=== PATIENT | male | born 1985 | race Caucasian/White ===

== ENCOUNTER 2019-03-10 10:10 | Emergency (ER) | payer OTHER ==
[2019-03-10 10:21] VITALS: BP 161/95
--- NOTE | 2019-03-10 11:28 | ED Physician Documentation ---
PD HPI UPPER EXT INJURY - Stated complaint Stated Complaint: HAND LAC - Chief complaint Chief Complaint: Laceration - History obtained from History obtained from: Patient - History of Present Illness Location: Left, Finger (index) Where injury occurred: Home Timing - onset: How many hours ago (1) - Additonal information Additional information: The patient is a 33-year-old [id number] male who presents with laceration to the base of his left index finger. He was splitting kindling at home when the ax impacted his left index finger. He denies any other injuries. Vaccinations are up-to-date. Review of Systems Skin: reports: Laceration (s) Neurologic: denies: Focal weakness, Numbness PD PAST MEDICAL HISTORY - Past Medical History Neuro: Other (Traumatic brain injury.) - Allergies Allergies/Adverse Reactions: Allergies Allergy/AdvReac Type Severity Reaction Status Date / Time morphine Allergy Respiratory Verified 03/10/19 10:16 - Social History Does the pt smoke?: Yes Smoking Status: Current every day smoker Does the pt have substance abuse?: No PD ED PE NORMAL - Vitals Vital signs reviewed: Yes (Initially hypertensive.) - General General: Alert and oriented X 3, Well developed/nourished - HEENT HEENT: Atraumatic - Respiratory Respiratory: No respiratory distress - Derm Derm: No rash - Extremities Extremities: Other (There is a 1 cm laceration at the base of the left index finger over the MCP joint. Exploration of the wound reveals a small betina in the dorsal surface of the extensor tendon, involving less than one third of the tendon. He has full flexion and extension of the DIP, PIP, and MCP joints, against resistance. Distal neurovascular is intact.) - Neuro Neuro: Alert and oriented X 3, No motor deficit, No sensory deficit Results - Vitals Vitals: Vital Signs - 24 hr 03/10/19 10:12 Temperature 37.0 C Heart Rate 83 Respiratory 14 Rate Blood Pressure 161/95 H O2 Saturation 100 Oxygen O2 Source Room air Procedures - Laceration (location) Left index finger Length in cm: 1 Wound type: Linear Neurovascular status: Sensory intact, Motor intact, Vascular intact Tendon involvement: Tendon Injury (Neck in the dorsal aspect of the extensor tendon, involving less than one third of the tendon.) Anesthesia: Lidocaine 1% with epi Wound Preparation: Hibiclens, Irrigated copiously NS, Wound explored, To the base. No: FB identified Skin layer closure: Nylon, Interrupted, Size #-0 - enter number (5), Sutures - enter # (2) Other: Patient tolerated well, No complications, Neurovascular intact, Dressing applied, Tetanus UTD Complexity: Simple PD MEDICAL DECISION MAKING - ED course Complexity details: re-evaluated patient, considered differential, d/w patient ED course: The patient's presentation is significant for laceration at the extensor base of the left index finger. There is superficial involvement of the extensor tendon. After the wound was explored and thoroughly irrigated, skin closure was obtained using 5-0 nylon simple sutures. Gauze dressing was applied, and an AlumaFoam finger splint was applied. I discussed with him appropriate wound care, timing for suture removal, as well as potentially worrisome signs or symptoms that should prompt reevaluation in the emergency department. Departure - Departure Disposition: 01 Home, Self Care Clinical Impression: Finger laceration involving tendon Qualifiers: Encounter type: initial encounter Qualified Code(s): S61.219A - Laceration without foreign body of unspecified finger without damage to nail, initial encounter Condition: Stable Instructions: ED Laceration Hand Follow-Up: Shavon Mcdowell MD [Provider Admit Priv/Credential] - Comments: Keep the wound clean, and apply antibiotic ointment daily. Use the AlumaFoam splint for the next 2 weeks. You can use Tylenol or ibuprofen if needed for discomfort. Follow-up for suture removal in about 10 days. Return to the emergency department if you develop any sign of infection, or otherwise worsening symptoms. Forms: Activity restrictions
== END 2019-03-10 11:52 | disposition home or self-care (01) ==
LOC: ED 10:10
DX: S66.321A Laceration of extensor muscle, fascia and tendon of left index finger at wrist and hand level, initial encounter (principal); S61.211A Laceration without foreign body of left index finger without damage to nail, initial encounter; W27.0XXA Contact with workbench tool, initial encounter; Y93.89 Activity, other specified; Y92.009 Unspecified place in unspecified non-institutional (private) residence as the place of occurrence of the external cause; F17.200 Nicotine dependence, unspecified, uncomplicated
CPT/HCPCS: 12001; 99282; 99283

== ENCOUNTER 2020-10-12 14:22 | Emergency (ER) | payer OTHER ==
[2020-10-12] MEDS ORDERED: SODIUM CHLORIDE 0.9% 1,000 ML IV STA (14:37)
--- NOTE | 2020-10-12 14:40 | ED Physician Documentation ---
History of Present Illness - Stated complaint Stated Complaint: HIGH BP, COGNITIVE IMPAIRMENT, SWEATING, HEART ISS - History obtained from History obtained from: Patient - Additonal information Additional information: He has had on and off diarrhea for quite some time. Starting 5 days ago he developed watery stools, no blood. Happen 6-8 times a day. About the same time he feels mildly confused, he feels like he does okay with yes or no questions but has difficulty with more complicated issues. Last night he felt like he had a "cardiac issue" where he had to chew some aspirin. There is no pain he just felt like his heart was vibrating for a couple of hours. That is gone now. He does have wheezing and shortness of breath but is a heavy smoker. He wonders if he might have untreated Giardia. He is never been tested for that. No history of colonoscopy. Review of Systems Ten Systems: 10 systems reviewed and negative Constitutional: denies: Fever, Chills, Myalgias, Weight Loss Nose: denies: Rhinorrhea / runny nose, Congestion Throat: denies: Sore throat Cardiac: reports: Palpitations. denies: Chest pain / pressure Respiratory: reports: Dyspnea, Cough PD PAST MEDICAL HISTORY - Past Medical History Neuro: Other (Traumatic brain injury.) - Present Medications Home Medications: Ambulatory Orders Medication Instructions Recorded Confirmed Albuterol Sulf [Ventolin Hfa 1 - 2 puffs INH Q4HR PRN #1 inhaler 10/12/20 Inhaler] Tinidazole [Tindamax] 4 tab PO ONCE #4 tablet 10/12/20 - Allergies Allergies/Adverse Reactions: Allergies Allergy/AdvReac Type Severity Reaction Status Date / Time morphine Allergy Respiratory Verified 10/12/20 14:33 - Social History Does the pt smoke?: Yes Smoking Status: Current every day smoker Does the pt have substance abuse?: No PD ED PE NORMAL - Vitals Vital signs reviewed: Yes - General General: Alert and oriented X 3, No acute distress - HEENT HEENT: PERRL, EOMI - Neck Neck: Supple, no meningeal sign, No bony TTP - Cardiac Cardiac: RRR, No murmur - Respiratory Respiratory: No respiratory distress, Other (Wheezy throughout without focal findings) - Abdomen Abdomen: Non tender - Back Back: No CVA TTP, No spinal TTP - Derm Derm: Normal color, Warm and dry - Extremities Extremities: No edema, No calf tenderness / cord - Neuro Neuro: Alert and oriented X 3, No motor deficit, No sensory deficit, Normal speech Eye Opening: Spontaneous Motor: Obeys Commands Verbal: Oriented GCS Score: 15 Results - Vitals Vitals: Vital Signs - 24 hr 10/12/20 10/12/20 10/12/20 14:30 15:08 15:45 Temperature 36.5 C Heart Rate 95 77 84 Respiratory 18 16 20 Rate Blood Pressure 162/110 H 140/102 H O2 Saturation 98 99 Oxygen O2 Source Room air - EKG (time done) 1438 Rate: Rate (enter#) (81) Rhythm: NSR [place]: Normal Intervals: Normal SD QRS: Normal Ischemia: ST elevation c/w repol. No: ST elevation c/w ischemia, ST depression Computer interpretation: Agree with computer - Labs Labs: Laboratory Tests 10/12/20 10/12/20 10/12/20 15:00 15:00 15:00 WBC 9.2 RBC 5.27 Hgb 15.8 Hct 44.5 MCV 84.4 MCH 30.0 MCHC 35.5 RDW 12.0 Plt Count 223 MPV 10.0 Neut # (Auto) 5.4 Lymph # (Auto) 2.5 [place] # (Auto) 0.7 Eos # (Auto) 0.6 Baso # (Auto) 0.0 Absolute Nucleated RBC 0.00 Nucleated RBC % 0.0 Sodium 141 Potassium 3.9 Chloride 107 Carbon Dioxide 24 Anion Gap 10.0 BUN 17 Creatinine 1.1 Estimated GFR (MDRD) 76 L Glucose 102 H Calcium 9.5 Magnesium 2.0 Total Bilirubin 0.7 AST 27 ALT 31 Alkaline Phosphatase 68 Troponin I High Sens < 2.3 L Total Protein 7.7 Albumin 4.6 Globulin 3.1 Albumin/Globulin Ratio 1.5 Lipase 38 - Rads (name of study) 1v chest Radiology: EMP read contemporaneously (hyperexpansion, NAD) PD MEDICAL DECISION MAKING - ED course ED course: 35-year-old gentleman presents with varied complaints of on and off diarrhea for quite some time now with feeling like he has cognitive issues and but his examination is unremarkable. He is wheezing which improved with an albuterol inhaler. He was counseled at length to quit smoking. He was unable to produce a stool sample here for stool testing but already has an outpatient order from his primary care physician for this. Is pretty convinced he has Giardia and since he is having trouble turning in a stool sample for same would like to be treated presumptively, since tinidazole is a fairly benign medication its not unreasonable. Departure - Departure Disposition: 01 Home, Self Care Clinical Impression: Wheezing Diarrhea Qualifiers: Diarrhea type: presumed infectious Qualified Code(s): R19.7 - Diarrhea, unspecified Condition: Stable Record reviewed to determine appropriate education?: Yes Instructions: ED Dehydration Prescriptions: Albuterol Sulf [Ventolin Hfa Inhaler] 1 - 2 puffs INH Q4HR PRN #1 inhaler PRN Reason: Shortness Of Air/Wheezing Tinidazole [Tindamax] 4 tab PO ONCE #4 tablet Comments: Return a stool sample to the lab as ordered by your PCP. Return if worsening. You have a Covid test pending. You need to self quarantine until the result is done and negative. Do not leave your house. Do not get near anybody. The results should be done in 48 to 72 hours. We will call with a positive result, the fastest way to get a negative result for confirmation though is to go to the hospital website at [email or web address], click on the my [facility] tab and sign up for the patient portal. If any friends or family get sick and would like to have a Covid test done, but do not have signs or symptoms that would necessitate being hospitalized, we encourage testing through our coronavirus swabbing station, call [phone] to schedule an appointment.
--- NOTE | 2020-10-12 15:00 | XRAY Report ---
PROCEDURE: Chest 1 View X-Ray INDICATIONS: wheezing TECHNIQUE: One view of the chest was acquired. COMPARISON: None FINDINGS: Surgical changes and devices: None. Lungs and pleura: No pleural effusions or pneumothorax. Lungs are clear, hyperexpanded. Mediastinum: Mediastinal contours appear normal. Heart size is normal. Bones and chest wall: No suspicious bony lesions. Overlying soft tissues appear unremarkable. IMPRESSION: Hyperexpanded lungs are seen, without an acute cardiopulmonary abnormality seen. Reviewed by: Romel Rosa MD on 10/12/2020 1:[address] [facility] Approved by: Romel Rosa MD on 10/12/2020 1:[address] [facility] Station ID: [id number]
[2020-10-12 15:07] LABS: BASOPHILS % (AUTO) 0.4 %; EOSINOPHILS # (AUTO) 0.6 10^3/uL (0.0-0.7); HGB - HEMOGLOBIN 15.8 g/dL (14.0-18.0); LYMPHOCYTES # (AUTO) 2.5 10^3/uL (1.5-3.5); LYMPHOCYTES % (AUTO) 26.8 %; MEAN CORPUSCULAR HGB CONC 35.5 g/dL (32.0-36.0); MEAN CORPUSCULAR VOLUME 84.4 fL (80.0-94.0); MONOCYTES # (AUTO) 0.7 10^3/uL (0.0-1.0); MONOCYTES % (AUTO) 7.1 %; NEUTROPHILS # (AUTO) 5.4 10^3/uL (1.5-6.6); NEUTROPHILS % (AUTO) 58.5 %; PLT - PLATELET COUNT 223 10^3/uL (130-450); RED BLOOD COUNT 5.27 10^6/uL (4.70-6.10); WHITE BLOOD COUNT 9.2 x10^3/uL (4.8-10.8)
[2020-10-12] MEDS ORDERED: ALBUTEROL 1 PUFF INH STA (15:08)
[2020-10-12 15:22] LABS: ALBUMIN 4.6 g/dL (3.2-5.5); ALBUMIN/GLOBULIN RATIO 1.5 (1.0-2.2); BILIRUBIN,TOTAL 0.7 mg/dL (0.2-1.0); CALCIUM 9.5 mg/dL (8.5-10.3); CREATININE 1.1 mg/dL (0.6-1.2); TOTAL PROTEIN 7.7 g/dL (6.7-8.2)
[2020-10-12 16:31] VITALS: BP 149/75
== END 2020-10-12 16:33 | disposition home or self-care (01) ==
LOC: ED 14:22
DX: R06.2 Wheezing (principal); R19.7 Diarrhea, unspecified; R00.2 Palpitations; Z20.828 Contact with and (suspected) exposure to other viral communicable diseases; F17.200 Nicotine dependence, unspecified, uncomplicated
CPT/HCPCS: 36415; 80053; 83690; 83735; 84484; 85025; 93005; 94640; 94664; 96360; 99284

== ENCOUNTER 2022-03-26 10:00 | Outpatient (CLI) | payer OTHER ==
--- NOTE | 2022-03-28 10:32 | MRI Report ---
PROCEDURE: Knee RT W/O INDICATIONS: RIGHT KNEE PAIN/ SWELLING TECHNIQUE: Noncontrast sagittal PD fast spin echo and T2 fast spin echo with fat saturation, sagittal 3-D gradie nt sequence with fat saturation; coronal T1 spin echo and PD fast spin echo with fat saturation, and axial PD fast spin echo with fat saturation through the knee. COMPARISON: None. FINDINGS: Image quality: Excellent. Menisci: The medial meniscus is intact. Signal abnormality involving anterior horn/body of lateral me niscus extending to both superior and inferior articulating surfaces suggestive of focal complex tear in this area versus prior surgery suggest clinical correlation. The meniscal root ligaments appear i ntact. Cruciate ligaments: Subtle signal abnormality within anterior cruciate ligament is seen. No ACL ruptu re. Degenerative intact. Medial structures: The medial collateral ligament appears intact. The posterior oblique ligament, s emimembranosus tendon insertions, and oblique popliteal ligament, and meniscocapsular junction appear intact. Visualized portions of the pes anserinus tendons appear normal. No abnormal bursal fluid. Lateral structures: The lateral collateral ligament, long and short heads of the biceps femoris tend on appear intact. The popliteus tendon appears normal; the popliteofibular ligament appears intact. The posterosuperior and anteroinferior popliteomeniscal fascicles appear intact. The arcuate and fa bellofibular ligaments appear intact, around the lateral inferior geniculate artery. Iliotibial band appears normal. Anterior structures: Mild distal quadriceps tendinosis at its superior patella insertion is seen. Pat jason tendon is intact. Patellar alignment is normal. No femoral trochlear dysplasia or ventral troch lear prominence. No edema in the infrapatellar fat pad. Bones and cartilage: No bone marrow contusions or fractures. The cartilage of the medial and latera l femorotibial compartments, as well as the patellofemoral compartment, appears normal in thickness. Joint space: There is small amount of joint effusion. No Gomez's cyst. Normal appearing synovial p licae are incidentally noted. IMPRESSION: 1. Signal abnormality involving anterior horn and body of lateral meniscus extending to both superior and inferior articulating surfaces suggestive of complex tear in this area versus prior surgery sugg est clinical correlation. Medial meniscus is intact. 2. Low grade sprain involving anterior cruciate ligament. No ACL rupture. PCL is intact. 3. Distal quadriceps tendinosis at its superior patella insertion. Patellar tendon is intact. 4. Small joint effusion. No marrow edema. No fracture or dislocation. Articulating cartilages are int act. Reviewed by: Chip Ibarra MD on 03/28/2022 10:30 AM PDT Approved by: Chip Ibarra MD on 03/28/2022 10:30 AM PDT Station ID: [id number]
== END 2022-03-26 10:01 | disposition home or self-care (01) ==
LOC: DI 10:00
PROVIDERS: ATTEND Internal Medicine
DX: S83.511A Sprain of anterior cruciate ligament of right knee, initial encounter (principal); M67.863 Other specified disorders of tendon, right knee; M25.461 Effusion, right knee

== ENCOUNTER 2022-07-08 08:00 | Outpatient (CLI) | payer OTHER ==
--- NOTE | 2022-07-08 18:24 | XRAY Report ---
PROCEDURE: Knee 4 View RT INDICATIONS: RIGHT KNEE PAIN TECHNIQUE: One view of the left knee. 4 views of the right knee. COMPARISON: MRI 03/26/2022 FINDINGS: Bones: Mild arthrosis. No acute fracture or dislocation. Similar findings are seen on the partially visualized left side. Soft tissues: Small joint effusion. IMPRESSION: Mild tricompartmental arthrosis. Small joint effusion. Internal structures are better as sessed on recent MRI. If there is further concern for acute injury, consider repeat cross-sectional i maging. Reviewed by: Jesus Olson MD on 07/08/2022 6:23 PM PDT Approved by: Jesus Olson MD on 07/08/2022 6:23 PM PDT Station ID: [id number]
== END 2022-07-08 23:59 | disposition home or self-care (01) ==
LOC: DI.WOS 08:00
PROVIDERS: ATTEND Orthopaedic Surgery
DX: M17.11 Unilateral primary osteoarthritis, right knee (principal); M25.461 Effusion, right knee

== ENCOUNTER 2022-12-20 07:40 | Outpatient (CLI) | payer OTHER ==
[~2022-12-20 07:40] MED LIST: iohexoL-300 100 ML VIAL ONE
--- NOTE | 2022-12-21 22:16 | CT Report ---
PROCEDURE: ABDOMEN/PELVIS WO INDICATIONS: HEMATURIA, UNEXPLAINED FEVER TECHNIQUE: Noncontrast 5 mm thick sections acquired from the diaphragms to the symphysis. 5 mm coronal and sagi ttal reformats were then performed. For radiation dose reduction, the following was used: automated exposure control, adjustment of mA and/or kV according to patient size. COMPARISON: None. FINDINGS: Image quality: Excellent. Lung bases: There is mild dependant atelectasis. Heart: Heart is normal in size. URINARY: Right Kidney and Ureter: No stones or hydronephrosis. No hydroureter. Left Kidney and Ureter: No stones or hydronephrosis. No hydroureter. Bladder: Normal wall thickness. No stones. ABDOMEN: Liver: Noncontrast evaluation of the liver demonstrates no discrete mass. Gallbladder: Within normal limits without calcified gallstones. Biliary ducts: No biliary ductal dilatation. Pancreas: Unremarkable. Spleen: Normal in size. Adrenal Glands: No adrenal nodules. Stomach and Bowel: Stomach, small bowel loops, and colon are normal in caliber and wall thickness. T here are surgical sutures along the cecum likely related to prior appendectomy. Peritoneum: No abnormal intraperitoneal fluid. No free air. Ventral Wall: No hernia. Abdominal Nodes: No retroperitoneal or mesenteric adenopathy by size criteria. Vessels: Aorta and inferior vena cava are normal in size. PELVIS: Pelvic Organs: Unremarkable. Pelvic Nodes: No enlarged lymph nodes. Miscellaneous: No inguinal hernias identified. Bones: Visualized osseous structures demonstrate no suspicious focal lesions. IMPRESSION: 1. No evidence of nephrolithiasis or obstructive uropathy. 2. Noncontrast evaluation of the abdomen demonstrates no definite acute abnormality. Reviewed by: Saad Caraballo MD on 12/21/2022 10:14 PM PST Approved by: Saad Caraballo MD on 12/21/2022 10:14 PM PST Station ID: [id number]
== END 2022-12-20 07:41 | disposition home or self-care (01) ==
LOC: DI 07:40
PROVIDERS: ATTEND Internal Medicine
DX: R50.9 Fever, unspecified (principal); R31.9 Hematuria, unspecified

== ENCOUNTER 2023-12-25 22:11 | Emergency (ER) | payer OTHER ==
[2023-12-25 22:25] VITALS: BP 166/84; O2SAT 97
--- NOTE | 2023-12-25 23:11 | ED Physician Documentation ---
History of Present Illness - Stated complaint Stated Complaint: LT ANKLE PX/REDNESS - Chief complaint Chief Complaint: Wound - History obtained from History obtained from: Patient - Additonal information Additional information: HPI from patient. Patient complains of left lower leg erythema with mild burning discomfort. He first noticed the signs/symptoms earlier this afternoon, a few hours after using a hot tub. Denies injury, denies h/o similar symptoms, denies fever. PD PAST MEDICAL HISTORY - Past Medical History Past Medical History: Yes Respiratory: Asthma Neuro: Other Psych: Post traumatic stress disorder Other Past Medical History: TBI; undiagnosed fever syndrome - Past Surgical History Past Surgical History: Yes General: Appendectomy Derm: Other - Present Medications Home Medications: Ambulatory Orders Medication Instructions Recorded Confirmed Ciprofloxacin HCl [Cipro] 500 mg PO BID #13 tablet 12/25/23 valACYclovir [Valtrex] 500 mg PO DAILY 12/25/23 12/25/23 - Allergies Allergies/Adverse Reactions: Allergies Allergy/AdvReac Type Severity Reaction Status Date / Time morphine Allergy Respiratory Verified 12/25/23 22:23 - Social History Does the pt smoke?: Yes Smoking Status: Current every day smoker Does the pt drink ETOH?: No Does the pt have substance abuse?: No - Immunizations Immunizations are current?: Yes - POLST Patient has POLST: No PD ED PE NORMAL - Vitals Vital signs reviewed: Yes - General General: Alert and oriented X 3, No acute distress, Well developed/nourished PD ED PE EXPANDED - Extremities Feet visual: 1 - rash (folliculocentric erythema with indistinct borders. nontender, no abnormal warmth/heat to touch) Results - Vitals Vitals: Vital Signs - 24 hr 12/25/23 22:16 Temperature 37.1 C Heart Rate 76 Respiratory 16 Rate Blood Pressure 166/84 H O2 Saturation 97 Oxygen O2 Source Room air PD Medical Decision Making - ED course Complexity details: considered differential, d/w patient ED course: Patient presents with focal left lower leg erythema as noted above (physical exam). There are indistinct borders, with multiple inflamed papules at the base of the follicles but no pustules and nontender. Given the temporal proximity to hot tub use, will cover potential for pseudomonal folliculitis with Cipro, the first dose of which is given in the emergency department and a prescription for a 1-week course of ciprofloxacin is electronically submitted to the [facility] in [place]. Departure - Departure Disposition: Home, Self Care Clinical Impression: Hot tub folliculitis Condition: Good Instructions: ED Folliculitis Prescriptions: Ciprofloxacin HCl [Cipro] 500 mg PO BID #13 tablet Comments: Based on your description of symptoms, the exam findings, and the onset of your symptoms subsequent to using a hot tub, I suspect your symptoms are caused by folliculitis. This is typically caused by bacteria. You were given the first dose of an antibiotic (ciprofloxacin) in the emergency department, and I have electronically submitted a prescription for a 1-week course of this antibiotic to the [facility] pharmacy in [place]. Forms: PCP List Discharge Date/Time: 12/25/23 23:48
[2023-12-25] MEDS: CIPROFLOXACIN 250 MG TABLET PO STA (23:47)
== END 2023-12-25 23:48 | disposition home or self-care (01) ==
LOC: ED 22:11
DX: L73.8 Other specified follicular disorders (principal); F17.200 Nicotine dependence, unspecified, uncomplicated
CPT/HCPCS: 99282; 99283; A9270